=== PATIENT | male | born 1990 | race Caucasian/White ===

== ENCOUNTER 2024-05-12 06:00 | Emergency (ER) | payer BC, SELFPAY ==
[2024-05-12 06:05] VITALS: BP 152/114; PULSE 63; TEMP 36.7; O2SAT 100; BMI 33.9
--- NOTE | 2024-05-12 06:20 | ED.ABDPAIN1 ---
HPI - Abdominal Pain General Chief Complaint: Abdominal Pain Stated Complaint: abd pain Time Seen by Provider: 05/12/24 06:16 Source: patient Mode of arrival: walk-in Limitations: no limitations History of Present Illness HPI narrative: 33-year-old male presents to the emergency department for a 9-hour history of epigastric abdominal pain. He had been vomiting at home as well but has had no diarrhea. It started after eating a steak. No hematemesis or fever or injury. The pain is moderate to severe and continuous. Related Data Home Medications ?Medication ?Instructions ?Recorded ?Confirmed No Known Home Medications 05/12/24 05/12/24 Allergies Allergy/AdvReac Type Severity Reaction Status Date / Time Penicillins Allergy Unknown Verified 05/12/24 06:05 Sulfa (Sulfonamide Allergy Unknown Verified 05/12/24 06:05 Antibiotics) Review of Systems ROS Narrative A ten point review of systems is negative except as noted above. PFSH PFSH Social History Little interest or pleasure in doing things: not at all Feeling down, depressed, or hopeless: not at all Exam Narrative Exam Narrative: Nurses note and vital signs reviewed and patient is not hypoxic. General: The patient appears uncomfortable. Skin: Warm, dry, no pallor noted. There is no rash noted. Head: Normocephalic, atraumatic Eye: Normal conjunctiva, no drainage Ears, Nose, Mouth, and Throat: oral mucosa is moist. Nares patent. Cardiovascular: Regular Rate and Rhythm Respiratory: Patient is in no distress, no accessory muscle use, lungs are clear to auscultation, no wheezing, rales or rhonchi GI: Tender in the epigastric area without mass or distention. Musculoskeletal: The patient has no evidence of calf tenderness, no pitting edema, symmetrical pulses noted bilaterally Neurological: A&O, normal speech Psychiatric: Cooperative Constitutional Vital Signs, click to edit/add: Last Vital Signs Temp 98.1 F 05/12/24 06:05 Pulse 63 05/12/24 06:05 Resp 22 H 05/12/24 06:05 BP 152/114 H 05/12/24 06:05 Pulse Ox 100 05/12/24 06:05 O2 Del Method Room Air 05/12/24 06:05 Course Vital Signs Vital signs: Vital Signs Temperature 98.1 F 05/12/24 06:05 Pulse Rate 63 05/12/24 06:05 Respiratory Rate 22 H 05/12/24 06:05 Blood Pressure 152/114 H 05/12/24 06:05 Pulse Oximetry 100 05/12/24 06:05 Oxygen Delivery Method Room Air 05/12/24 06:05 Temperature 98.1 F 05/12/24 06:05 Pulse Rate 63 05/12/24 06:05 Respiratory Rate 22 H 05/12/24 06:05 Blood Pressure 152/114 H 05/12/24 06:05 Pulse Oximetry 100 05/12/24 06:05 Oxygen Delivery Method Room Air 05/12/24 06:05 MDM - Abdominal Pain MDM Narrative Medical decision making narrative: Tests are ordered and the patient is signed out to Dr. Coffman at change of shift. Differential Diagnosis Differential diagnosis: Likely abdominal pain, constipation, diverticulitis, gastroenteritis and pancreatitis Discharge Plan Discharge Patient Disposition: Still a Patient
[2024-05-12] MEDS: ONDANSETRON PF 4 MG/2 ML VIAL IV (06:38)
[2024-05-12] MEDS: 0.9 % SODIUM CHLORIDE 1,000 ML 1000 ML IV (06:38)
[2024-05-12] MEDS: PANTOPRAZOLE SODIUM 40 MG VIAL IV (06:43)
[2024-05-12 06:44] LABS: Basophils Absolute Auto 0.1 10^3/uL (0.0-0.1); Basophils Percent Auto 0.3 % (0.2-2.0); Immature Granulocytes Abs Auto 0.12 10^3/uL (0.00-0.03); Immature Granulocytes Pct Auto 0.6 % (0.0-0.5); Lymphocytes Absolute Auto 1.3 10^3/uL (1.2-3.8); Lymphocytes Percent Auto 5.9 % (20.5-60.0); Mean Corpuscular HGB Conc 36.2 g/dL (29.9-35.2); Mean Corpuscular Hemoglobin 30.9 pg (25.9-34.0); Mean Corpuscular Volume 85.3 fL (80.0-94.0); Mean Platelet Volume 8.2 fL (9.5-13.5); Monocytes Absolute Auto 0.6 10^3/uL (0.3-0.8); Monocytes Percent Auto 2.7 % (1.7-12.0); Neutrophils Absolute Auto 19.4 10^3/uL (1.4-6.5); Neutrophils Percent Auto 90.5 % (43.0-75.0); Platelet Count 336 10^3/uL (150-450); Red Blood Count 5.51 10^6/uL (4.70-6.10); Red Cell Distribution Width 11.9 % (11.0-15.0); White Blood Count 21.4 10^3/uL (4.0-11.0)
[2024-05-12 06:48] VITALS: BP 142/83
--- NOTE | 2024-05-12 06:52 | CT_ITS ---
[address] [address] Patient Name: SHERRELL FLORES MRN: [id number] date: 1990 Sex: M Assigned Patient Location: ER Current Patient Location: ER Accession/Order Number: [id number] Exam Date: 05/12/2024 07:05 Report Date: 05/12/2024 08:03 At the request of: SARY WHITE Procedure: CT abdomen pelvis w con EXAMINATION: CT abdomen pelvis w con HISTORY: Epigastric pain, WBC 21,000 , nausea and vomiting COMPARISON: No relevant comparison available. TECHNIQUE: Axial, Coronal, and Sagittal images were obtained without and/or with IV contrast as indicated by examination type. Dose reduction techniques were achieved by using automated exposure control and/or adjustment of mA and/or kV according to patient size and/or use of iterative reconstruction technique. FINDINGS: LUNG BASES: No visible pulmonary or pleural disease. LIVER: No enlargement, atrophy, suspicious density, or significant focal lesion. BILIARY: Several tiny stones within noninflamed gallbladder. 4 mm stone within the cystic duct. No abnormal dilation of the common bile duct. PANCREAS: No lesion, fluid collection, or abnormal duct dilatation. SPLEEN: No enlargement or focal lesion. ADRENALS: No mass or enlargement. Small left renal hypodensity suspected to represent a cyst. KIDNEYS: No mass, obstruction, or calcification. BOWEL/MESENTERY: No visible mass, obstruction, or bowel wall thickening. AORTA/VASCULAR: No aneurysm or dissection. RETROPERITONEUM: No mass or adenopathy. LYMPH NODES: No adenopathy. URINARY BLADDER: No visible focal wall thickening, lesion, or calculus. PELVIC ORGANS: No visible mass. Pelvic organs appropriate for patient age. ABDOMINAL WALL: No mass or hernia. BONES: No bony lesion or fracture. OTHER: Negative. CT/CT abdomen pelvis w con IMPRESSION: 1. Cholelithiasis along with a 4 mm stone within the cystic duct. No appreciable acute inflammatory changes. Electronically authenticated by: HUA GRAY Date: 05/12/2024 08:03
[2024-05-12 06:53] LABS: Alanine Aminotransferase 31 U/L (16-63); Albumin Globulin Ratio 0.9; Albumin Level 3.9 g/dL (3.4-5.0); Alkaline Phosphatase 89 U/L (46-116); Amylase 39 U/L (25-115); Anion Gap 16.6; Aspartate Amino Transferase 16 U/L (15-37); BUN Creatinine Ratio 16.2; Bilirubin Direct 0.2 mg/dL (0.0-0.2); Bilirubin Total 1.2 mg/dL (0.2-1.0); Calcium 9.8 mg/dL (8.5-10.1); Carbon Dioxide 25.2 mmol/L (21.0-32.0); Chloride 99 mmol/L (98-107); Estimated GFR (African America >60 (>=60); Estimated GFR (Non-African Ame >60 (>=60); Globulin 4.3 g/dL; Glucose 133 mg/dL (74-106); Potassium 3.8 mmol/L (3.5-5.1); Sodium 137 mmol/L (136-145); Total Protein 8.2 g/dL (6.4-8.2)
[2024-05-12] MEDS: HYDROMORPHONE HCL 1 MG/ML CARTRIDGE IVP (07:29)
--- NOTE | 2024-05-13 15:24 | PC.NURSE ---
On 05/12/2024 This RN, gave Morphine 4 mg IV push as ordered at 0645.
== END 2024-05-12 08:35 | disposition home or self-care (01) ==
PROVIDERS: Emergency Medicine; Emergency Provider Emergency Medicine Emergency Medical Services
DX: K83.9 Disease of biliary tract, unspecified (principal)
CPT/HCPCS: 36415; 74177; 80048; 80076; 82150; 83690; 85025; 96361; 96374; 96375; 99285; J1170; J2270; J2405; Q9967